=== PATIENT | female | born 1955 | race Caucasian/White ===

== ENCOUNTER 2018-01-01 09:07 | Emergency (ER) | payer OTHER ==
[2018-01-01 09:25] VITALS: BP 140/64
--- NOTE | 2018-01-01 09:42 | ED ---
Upper Extremity Pain - History of Current Complaint Chief Complaint: UCUpperExtremity Stated Complaint: RIGHT HAND COMP Time Seen by Provider: 01/01/18 09:32 Hx Obtained From: Patient Onset/Duration: Started Days Ago Timing: Constant Severity Initially: Moderate Severity Currently: Moderate Pain Location: Hand Character: Throbbing Aggravating Factor(s): Flexion Alleviating Factor(s): Rest Associated Signs & Symptoms: Positive: Swelling - Risk Factors Non-Orthopedic Risk Factor: Negative DVT Risk Factors: Negative Septic Arthritis Risk Factor: Negative - Allergies/Home Medications Allergies/Adverse Reactions: Allergies Allergy/AdvReac Type Severity Reaction Status Date / Time No Known Allergies Allergy Verified 01/01/18 09:18 Home Medications: Home Medications FLUoxetine CAP* [Prozac CAP*] 20 mg PO DAILY 01/01/18 [History Confirmed ] L.acidoph,Paracasei, B.lactis [Probiotic] 1 each PO DAILY 01/01/18 [History Confirmed 01/01/18] PMH/Surg Hx/FS Hx/Imm Hx Previously Healthy: Yes Cardiovascular History: Reports: Hx Hypertension - Cancer History Hx Chemotherapy: No Hx Radiation Therapy: No - Surgical History Surgery Procedure, Year, and Place: Total Hysterectomy, 2007, [place] Infectious Disease History: No Infectious Disease History: Denies: Traveled Outside the [place] in Last 30 Days - Social History Alcohol Use: None Substance Use Type: Reports: None Smoking Status (MU): Former Smoker Type: Cigarettes Amount Used/How Often: 1 PPD Length of Time of Smoking/Using Tobacco: 31 Years Have You Smoked in the Last Year: No Review of Systems Constitutional: Negative Eyes: Negative ENT: Negative Cardiovascular: Negative Respiratory: Negative Gastrointestinal: Negative Genitourinary: Negative Musculoskeletal: Other - pain dorsal surface right hand Skin: Other - swelling of dorsal surface hand Neurological: Negative Psychological: Normal All Other Systems Reviewed And Are Negative: Yes Physical Exam Triage Information Reviewed: Yes Vital Signs On Initial Exam: Initial Vitals Temp Pulse Resp BP Pulse Ox 36.5 C 92 16 140/64 97 01/01/18 09:20 01/01/18 09:20 01/01/18 09:20 01/01/18 09:20 01/01/18 09:20 Vital Signs Reviewed: Yes Appearance: Positive: Well-Appearing Skin: Positive: Warm - swelling dorsal surface of hand, pain with flexion and extension of fingers Head/Face: Positive: Normal Head/Face Inspection Eyes: Positive: Normal ENT: Positive: Normal ENT inspection Neck: Positive: Supple Respiratory/Lung Sounds: Positive: Clear to Auscultation Cardiovascular: Positive: Normal Abdomen Description: Positive: Nontender Neurological: Positive: Normal Psychiatric: Positive: Normal Diagnostics - Vital Signs Vital Signs Temp Pulse Resp BP Pulse Ox 01/01/18 09:20 36.5 C 92 16 140/64 97 - Laboratory Lab Statement: Any lab studies that have been ordered have been reviewed, and results considered in the medical decision making process. Course/Dx - Diagnoses Provider Diagnoses: Tenosynovitis of hand Discharge - Sign-Out/Discharge Documenting (check all that apply): Patient Departure - Discharge Plan Condition: Good Disposition: HOME Prescriptions: Meloxicam [Mobic] 15 mg PO DAILY PRN #10 tablet PRN Reason: Pain - Arthritis Patient Education Materials: Tenosynovitis (ED) Referrals: [place] David MD [Primary Care Provider] - - Billing Disposition and Condition Condition: GOOD Disposition: Home
--- NOTE | 2018-01-01 10:10 | RAD ---
INDICATION: Right hand pain and swelling. TECHNIQUE: 4 views of the right hand were obtained. FINDINGS: There is soft tissue swelling dorsal to the metacarpal bones. Bones are in normal alignment. No fracture is seen. There is mild to moderate osteoarthritic change in the proximal and distal interphalangeal joints. There is a small lucent lesion at the base of the third middle phalanx most consistent with a subchondral cyst. IMPRESSION: 1. SOFT TISSUE SWELLING. 2. MILD TO MODERATE OSTEOARTHRITIC CHANGE.
[2018-01-01 13:47] LABS: ABS Basophils 0.1 10^3/ul (0-0.2); ABS Eosinophils 0.3 10^3/ul (0-0.6); ABS Lymphocytes 2.3 10^3/ul (1.0-4.8); ABS Monocytes 0.8 10^3/ul (0-0.8); ABS Neutrophils 4.1 10^3/ul (1.5-7.7); ABS Nucleated RBC 0 10^3/ul; Eosinophil % 3.5 % (0-6); Hematocrit 40 % (35-47); Hemoglobin 13.4 g/dl (12.0-16.0); Mean Corpuscular HGB Conc 34 g/dl (31-36); Mean Corpuscular Hemoglobin 29 pg (27-31); Mean Corpuscular Volume 85 fL (80-97); Mean Platelet Volume 7.8 um3 (7.4-10.4); Nucleated Red Blood Cells % 0; Platelet Count 235 10^3/ul (150-450); Red Blood Count 4.66 10^6/ul (4.00-5.40); Red Cell Distribution Width 14 % (10.5-15); White Blood Count 7.6 10^3/ul (3.5-10.8)
[2018-01-01 14:04] LABS: EGFR Non-African American 66.9 (>60)
--- NOTE | 2018-01-02 08:31 | UC ---
- Progress Note Progress Note: Blood work thus far nonspecific; however, given s/sx encourage f/u PCP - call today for appt early next week (Mon / Tues if possible). If worsening, then f/ u direct support specialist, or go to the Emergency Department. Course/Dx - Diagnoses Provider Diagnoses: Tenosynovitis of hand Discharge - Sign-Out/Discharge Documenting (check all that apply): Post-Discharge Follow Up - Discharge Plan Condition: Good Disposition: HOME Prescriptions: Meloxicam [Mobic] 15 mg PO DAILY PRN #10 tablet PRN Reason: Pain - Arthritis Patient Education Materials: Tenosynovitis (ED) Referrals: [place] David MD [Primary Care Provider] - - Billing Disposition and Condition Condition: GOOD Disposition: Home
== END 2018-01-01 10:22 | disposition home or self-care (01) ==
LOC: UCCORT 09:07
DX: M65.9 Synovitis and tenosynovitis, unspecified (principal); M19.041 Primary osteoarthritis, right hand; Z87.891 Personal history of nicotine dependence
CPT/HCPCS: 36415; 80053; 84550; 85025; 85652; 99212; G0463